=== PATIENT | male | born 1990 | race Caucasian/White ===

== ENCOUNTER 2018-01-25 11:57 | Emergency (ER) | payer MEDICAID ==
[~2018-01-25] VITALS: Ht 170.2 cm; Wt 66.7 kg
[~2018-01-25 11:57] MED LIST: IBUPROFEN600 MG ORAL; NORCO 5-325 TA1 EACH ORAL
[2018-01-25 12:26] VITALS: BP 120/70
[2018-01-25] MEDS ORDERED: Norco 5mg/325mg tab ORAL ONE (12:45)
[2018-01-25] MEDS ORDERED: Ketorolac 30mg Inj IV ONE (12:45)
[2018-01-25 12:49] LABS: APPEARANCE,URINE CLEAR; BILIRUBIN, URINE NEGATIVE (NEGATIVE); COLOR,URINE PALE YELLOW; GLUCOSE, URINE (UA) NEGATIVE (NEGATIVE); KETONES,URINE NEGATIVE (NEGATIVE); LEUKOCYTE ESTERASE ,URINE NEGATIVE (NEGATIVE); NITRITE,URINE NEGATIVE (NEGATIVE); PH,URINE 5 (4.5-8.0); PROTEIN,URINE NEGATIVE (NEGATIVE); UROBILINOGEN,URINE NORMAL MG/DL (0.0-1.0)
--- NOTE | 2018-01-25 13:01 | Emergency Room Report ---
History of Present Illness General Chief Complaint: Pain Source: Patient Present Illness HPI 28-year-old male patient presents to ER complaining of RUQ pain radiating to the back x1 day. Reports pain is underneath his ribs the right side. Denies acute injury. Reports pain began after eating food yesterday, reports was 8 out 10 at that time, reports pain has resolved since that time. reports pain worse with movement. Denies fever, chest pain, shortness of breath, diarrhea, vomiting. similar symptoms in the past. Denies history of gallstones, kidney stones, abdominal surgery. Denies dysuria, hematuria. Allergies: Coded Allergies: No Known Allergies (Unverified , 02/21/15) Patient History Past Medical History: see triage record Reviewed Nursing Documentation: PMH: Agreed; PSxH: Agreed Nursing Documentation-PMH Past Medical History: No Stated History Hx Cardiac Problems: Yes - valve problem Review of Systems All Other Systems: negative except mentioned in HPI Physical Exam Vital Signs Date Time Temp Pulse Resp B/P (MAP) Pulse Ox O2 Delivery O2 Flow Rate FiO2 01/25/18 12:16 98.3 59 16 120/70 98 Room Air 98.2 Sp02 EP Interpretation: reviewed, normal General Appearance: well appearing, no apparent distress, alert, GCS 15, non- toxic Head: normocephalic, atraumatic Eyes: bilateral eye normal inspection, bilateral eye PERRL ENT: hearing grossly normal, normal pharynx, no angioedema, normal voice, uvula midline, moist mucus membranes Neck: full range of motion Respiratory: chest non-tender, lungs clear, normal breath sounds, no rhonchi, no respiratory distress, no accessory muscle use, no wheezing, speaking full sentences, other - ribs nontender to palpation, no bony deformity, no flail chest Cardiovascular #1: regular rate, rhythm, no edema Gastrointestinal: normal bowel sounds, soft, no mass, non-distended, no guarding, no rebound, tenderness - right upper quadrant, other - negative Rovsing, negative obturator, negative heel strike Genitourinary: no CVA tenderness Musculoskeletal: back normal, digits/nails normal, gait/station normal, normal range of motion, non-tender Neurologic: alert, oriented x3, responsive, motor strength/tone normal, sensory intact Skin: no rash Medical Decision Making PA Attestation Dr. Hayward is my supervising Physician whom patient management has been discussed with. Diagnostic Impression: Primary Impression: Kidney stone Additional Impression: Hydronephrosis ER Course Pt. presents to the ED c/o RUQ rib pain radiating to back. Ddx considered but are not limited to UTI, cholelithiasis, cholecystitis, pancreatitis, appendicitis, diverticulitis. Begin abdominal pain workup. Provided patient with pain medication. low suspicion for appendicitis, negative Rovsing, negative obturator, negative heel strike. Low suspicion for AAA, no blood pressure patient patient nontoxic appearing, no cardiac past medical history. Vital signs: are WNL, pt. is afebrile ORDERS: CBC, CMP, Lipase, UA, abdominal US, CT, and pain medication. ER COURSE: CBC and CMP unremarkable, no elevation of creatinine or white blood cells. provided with IV fluids. Initially ordered US due to patient reports of symptom onset following meal and RUQ pain symptoms to rule out gallstone pathology. Ultrasound negative for gallstones, hydronephrosis noted, will order CT to rule out underlying pathology. UA shows signs of infection, however many rbc's present, likely due to kidney injury, will rule out kidney stones. Abdominal CT shows mild hydronephrosis and kidney stones present. Likely cause of the patient's pain symptoms. Informed patient of results, instructed to drink plenty of water, follow-up with primary care provider and get referral to urology. Provide treatment for symptoms. strain urine and attempted to catch stone if it has not already passed. ER precautions given, return to ER for new or worsening of symptoms. Patient reports feeling better, reports pain symptoms improved since arrival to ER, OK for discharge to home. Reports girlfriend will take him home. DISCHARGE: Rx provided for Tylenol #3.CURES reviewed. 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 Rx provided for Flomax At this time pt. is stable for d/c to home. Patient resting comfortably, in no acute distress, nontoxic appearing, talking without difficulty. Rx provided to patient. Patient to take medications as instructed Will provide with patient care instructions and any necessary prescriptions. Care plan and follow-up instructions provided. Patient instructed to follow-up with primary care provider in 3 - 5 days. Patient questions asked and answered. Patient reports understanding and agreement to treatment plan. ER precautions given. Patient instructed to return to ER immediately for any new or worsening of symptoms including but not limited to increasing SOB, persistent fever, worsening of pain symptoms, intractable vomiting, blood in stool, urine, and/or emesis. - Please note that this Emergency Department Report was dictated using [employer] broker technology software, occasionally this can lead to erroneous entry secondary to interpretation by the dictation equipment. Labs Test 01/25/18 12:20 01/25/18 13:20 Urine Color Pale yellow Urine Appearance Clear Urine pH 5 (4.5-8.0) Urine Specific [place] 1.015 (1.005-1.035) Urine Protein Negative (NEGATIVE) Urine Glucose (UA) Negative (NEGATIVE) Urine Ketones Negative (NEGATIVE) Urine Occult Blood 4+ (NEGATIVE) Urine Nitrite Negative (NEGATIVE) Urine Bilirubin Negative (NEGATIVE) Urine Urobilinogen Normal MG/DL (0.0-1.0) Urine Leukocyte Esterase Negative (NEGATIVE) Urine RBC 40-60 /HPF (0 - 0) Urine WBC 0-2 /HPF (0 - 0) Urine Squamous Epithelial Cells Occasional /LPF Urine Bacteria Occasional /HPF (NONE) White Blood Count 4.8 K/UL (4.8-10.8) Red Blood Count 5.44 M/UL (4.70-6.10) Hemoglobin 16.2 G/DL (14.2-18.0) Hematocrit 47.6 % (42.0-52.0) Mean Corpuscular Volume 88 FL (80-99) Mean Corpuscular Hemoglobin 29.9 PG (27.0-31.0) Mean Corpuscular Hemoglobin Concent 34.1 G/DL (32.0-36.0) Red Cell Distribution Width 10.9 % (11.6-14.8) Platelet Count 203 K/UL (150-450) Mean Platelet Volume 11.2 FL (6.5-10.1) Neutrophils (%) (Auto) 49.1 % (45.0-75.0) Lymphocytes (%) (Auto) 35.9 % (20.0-45.0) Monocytes (%) (Auto) 9.7 % (1.0-10.0) Eosinophils (%) (Auto) 2.8 % (0.0-3.0) Basophils (%) (Auto) 2.5 % (0.0-2.0) Sodium Level 142 MMOL/L (136-145) Potassium Level 4.8 MMOL/L (3.5-5.1) Chloride Level 104 MMOL/L (98-107) Carbon Dioxide Level 32 MMOL/L (21-32) Anion Gap 6 mmol/L (5-15) Blood Urea Nitrogen 7 mg/dL (7-18) Creatinine 1.1 MG/DL (0.55-1.30) Estimat Glomerular Filtration Rate > 60 mL/min (>60) Glucose Level 65 MG/DL (74-106) Calcium Level 9.4 MG/DL (8.5-10.1) Total Bilirubin 1.4 MG/DL (0.2-1.0) Direct Bilirubin 0.3 MG/DL (0.0-0.3) Aspartate Amino Transf (AST/SGOT) 20 U/L (15-37) Alanine Aminotransferase (ALT/SGPT) 41 U/L (12-78) Alkaline Phosphatase 43 U/L (46-116) Total Protein 7.6 G/DL (6.4-8.2) Albumin 4.2 G/DL (3.4-5.0) Globulin 3.4 g/dL Albumin/Globulin Ratio 1.2 (1.0-2.7) Lipase 128 U/L (73-393) CT/MRI/US Diagnostic Results CT/MRI/US Diagnostic Results #1: Imaging Test Ordered: abdominal ultrasound Impression Mild right hydronephrosis. CT/MRI/US Diagnostic Results #2: Imaging Test Ordered: abdominal CT Impression 5 mm right UPJ stone with associated mild hydronephrosis. Last Vital Signs Date Time Temp Pulse Resp B/P (MAP) Pulse Ox O2 Delivery O2 Flow Rate FiO2 01/25/18 12:26 98.2 16 120/70 98 Room Air 98.2 01/25/18 12:16 59 Disposition: HOME, SELF-CARE Condition: Stable Scripts Tamsulosin HCl (Flomax) 0.4 Mg Cap.er.24h 0.4 MG ORAL DAILY for 7 Days, #7 CAP Prov: Rajendra Muñoz P.A. 01/25/18 Acetaminophen With Codeine (T#3) (TYLENOL #3 TAB*) Y Tab 2 TAB ORAL Q6H PRN for For Pain, #10 TAB Prov: Rajendra Muñoz P.A. 01/25/18 Referrals: NON PHYSICIAN (PCP) Patient Instructions: Hydronephrosis, Kidney Stones Additional Instructions: Followup with primary care provider in 3 -5 days. Take medications as directed. Patient questions asked and answered. ER precautions given, patient instructed to return to ER immediately for any new or worsening of symptoms. Rajendra Muñoz Jan 25, 2018 13:01
[2018-01-25 13:51] LABS: BASOPHILS % (AUTO) 2.5 % (0.0-2.0); EOSINOPHILS % (AUTO) 2.8 % (0.0-3.0); HEMATOCRIT 47.6 % (42.0-52.0); HEMOGLOBIN 16.2 G/DL (14.2-18.0); LYMPHOCYTES % (AUTO) 35.9 % (20.0-45.0); MEAN CORPUSCULAR VOLUME 88 FL (80-99); MONOCYTES % (AUTO) 9.7 % (1.0-10.0); NEUTROPHILS % (AUTO) 49.1 % (45.0-75.0); PLATELET COUNT 203 K/UL (150-450); RED BLOOD COUNT 5.44 M/UL (4.70-6.10); RED CELL DISTRIBUTION WIDTH 10.9 % (11.6-14.8); WHITE BLOOD COUNT 4.8 K/UL (4.8-10.8)
[2018-01-25 14:00] LABS: ANION GAP 6 mmol/L (5-15); BLOOD UREA NITROGEN 7 mg/dL (7-18); CALCIUM 9.4 MG/DL (8.5-10.1); CARBON DIOXIDE 32 MMOL/L (21-32); CHLORIDE 104 MMOL/L (98-107); CREATININE 1.1 MG/DL (0.55-1.30); POTASSIUM 4.8 MMOL/L (3.5-5.1); SODIUM 142 MMOL/L (136-145)
[2018-01-25 14:10] LABS: ALANINE AMINOTRANSFERASE 41 U/L (12-78); ALBUMIN 4.2 G/DL (3.4-5.0); ALBUMIN/GLOBULIN RATIO 1.2 (1.0-2.7); ALKALINE PHOSPHATASE 43 U/L (46-116); ASPARTATE AMINO TRANSFERASE 20 U/L (15-37); BILIRUBIN,TOTAL 1.4 MG/DL (0.2-1.0)
[2018-01-25 14:11] LABS: BILIRUBIN,DIRECT 0.3 MG/DL (0.0-0.3)
--- NOTE | 2018-01-25 14:54 | Diagnostic Imaging Report ---
Indication: Abdominal pain Technique: Continuous helical transaxial imaging of the abdomen was obtained from the lung bases to the iliac crests. No IV contrast given. Coronal 2-D reformats were also obtained. Study obtained in a Siemens sensation [address] Automatic Exposure Control was utilized. Total Dose length Product (DLP): 339.[address] Dose Index Volume (CTDIvol): 9.94 mGy Comparison: None Findings: The lung bases are clear. There is some mild dilatation of the right renal pelvis. This is secondary to a 5 mm stone demonstrated in the right UPJ. Most of the right ureter is not seen. The pelvis was not imaged as per referring E.D. clinician. The bladder is not imaged. There is a moderate amount of stool noted within the colon. Appendix is below the field of view and not seen. The left kidney is unremarkable. Solid organs not evaluated well on a noncontrast study. There is no free fluid visualized in the abdomen. IMPRESSION: 5 mm right UPJ stone with associated mild hydronephrosis. Note: Study is incomplete with regard to the urinary tract. In general, the abdomen and pelvis should be imaged in its entirety when evaluating generalized pain or evaluation of hydronephrosis (revealed on earlier ultrasound), unless there is a specific reason not to do so or to confirm a specific diagnosis in mind (e.g. evaluation of a liver mass). Fortuitously, the pathology in this case i.e. obstructing stone is at the UPJ (which is much less common than the UVJ). Additional stones within the urinary tract are not excludable. The CT scanner at [facility] is accredited by the [employer] [place] and the scans are performed using dose optimization techniques as appropriate to a performed exam including Automatic Exposure control.
[2018-01-25 15:10] VITALS: BP 125/68
[2018-01-25] MEDS ORDERED: ACETAMINOPHEN-1 EAC1 ORAL (15:27)
[2018-01-25] MEDS ORDERED: FLOMAX0.4 MG ORAL (15:27)
--- NOTE | 2018-01-25 15:27 | Diagnostic Imaging Report ---
Indication:Abdominal pain Technique: Grayscale and duplex Doppler imaging of the abdomen performed. Comparison: None Findings: The liver, demonstrated part of the pancreas, gallbladder, aorta and IVC, and spleen appear unremarkable. There is mild right hydronephrosis. The left kidney is unremarkable. Bladder is unremarkable. There is no biliary ductal dilatation identified. Doppler evaluation of the main portal vein shows patency. There is no ascites. No hydronephrosis seen. Impression: Mild right hydronephrosis. Please refer to the CT report
[2018-01-25 16:59] VITALS: BP 125/68
== END 2018-01-25 17:00 | disposition home or self-care (01) ==
LOC: EMR 12:41
DX: N13.2 Hydronephrosis with renal and ureteral calculous obstruction (principal)
CPT/HCPCS: 36415; 74150; 76700; 80053; 81003; 82248; 83690; 85025; 96360; 96374; 99284; J1885